=== PATIENT | female | born 1945 | race Two or more races ===

== ENCOUNTER 2019-03-26 17:09 | Emergency (ER) | payer MEDICARE, MEDICAID ==
[~2019-03-26] VITALS: Ht 167.6 cm; Wt 92.5 kg
[2019-03-26 17:33] VITALS: BP 136/60
[2019-03-26] MEDS ORDERED: CHLORASEPTIC S1 EACH MM (17:44)
[2019-03-26 17:50] VITALS: BP 136/60
--- NOTE | 2019-03-26 17:54 | Emergency Room Report ---
History of Present Illness General Chief Complaint: Pain Source: Patient Present Illness HPI 73-year-old female with hx of DM and HTN presents with sore throat for 1 week. She reports painful swallowing, rated 6/10, along with rhinorrhea and that she is getting over a cough. Denies any foreign body sensation, rash, vomiting or fever. She also reports lesions inside her bilateral cheeks which come and go. She spoke to her PCP about this and he told her it was likely due to her dentures and to stop wearing them for a while. She has not tried any medications other than NyQuil. Denies history of cancer. Allergies: Coded Allergies: No Known Allergies (Unverified , 03/26/19) Patient History Past Medical History: see triage record Past Surgical History: none Pertinent Family History: none Reviewed Nursing Documentation: PMH: Agreed; PSxH: Agreed Nursing Documentation-PMH Hx Hypertension: Yes - HIGH CHOLESTEROL Hx Diabetes: Yes Review of Systems All Other Systems: negative except mentioned in HPI Physical Exam Vital Signs Date Time Temp Pulse Resp B/P (MAP) Pulse Ox O2 Delivery O2 Flow Rate FiO2 03/26/19 17:14 98.2 76 18 136/60 (85) 98 Room Air Sp02 EP Interpretation: reviewed, normal General Appearance: no apparent distress, alert, GCS 15, non-toxic Head: normocephalic, atraumatic Eyes: bilateral eye normal inspection, bilateral eye PERRL ENT: hearing grossly normal, normal pharynx, no angioedema, normal voice, uvula midline, moist mucus membranes, other - Mild purple discoloration to bilateral inner cheeks Neck: normal inspection, full range of motion, thyroid normal, no meningismus, no bony tend, supple/symm/no masses Respiratory: chest non-tender, lungs clear, normal breath sounds, speaking full sentences Cardiovascular #1: regular rate, rhythm Neurologic: alert, oriented x3, sensory intact, responsive, speech normal Psychiatric: judgement/insight normal Lymphatic: no adenopathy Medical Decision Making PA Attestation Dr. Edmonds is my supervising physician whom patient management and care has been discussed with. Diagnostic Impression: Primary Impression: Pharyngitis Qualified Codes: J02.9 - Acute pharyngitis, unspecified ER Course Pt. presents to the ED c/o lower throat and mouth lesions. Ddx considered but are not limited to strep pharyngitis, viral syndrome, influenza, postnasal drip, cancer Vital signs: are WNL, pt. is afebrile H&PE are most consistent with viral pharyngitis ORDERS: none required at this time, the diagnosis is clinical ED INTERVENTIONS: None required at this time. DISCHARGE: At this time pt. is stable for d/c to home. Will provide printed patient care instructions, and any necessary prescriptions. Mild purple discoloration to bilateral inner cheeks likely due to denture use but cannot rule out possible malignancy. Advised patient to try Chloraseptic throat lozenges for her sore throat but if symptoms do not improve she needs to follow- up with her PCP/ENT specialist to rule out possible oral cancer. Verbalizes understanding. Care plan and follow up instructions have been discussed with the patient prior to discharge. Last Vital Signs Date Time Temp Pulse Resp B/P (MAP) Pulse Ox O2 Delivery O2 Flow Rate FiO2 03/26/19 17:33 98.2 18 136/60 98 Room Air 03/26/19 17:14 76 Disposition: HOME, SELF-CARE Condition: Stable Scripts Benzocaine/Menthol (CHLORASEPTIC SORE THROAT LOZNG) 1 Each Lozenge 1 EACH MM EVERY 2 HOURS for sore throat, #14 LOZENGE Prov: Devora Javier 03/26/19 Patient Instructions: Pharyngitis, [id number] Additional Instructions: Use CHLORASEPTIC throat lozenges or spray for sore throat. Follow up with PCP/ specialist if lesions do not improve to rule out possible cancer. Devora Javier Mar 26, 2019 17:54
== END 2019-03-26 17:50 | disposition home or self-care (01) ==
LOC: EMR 17:44
DX: J02.9 Acute pharyngitis, unspecified (principal); E11.9 Type 2 diabetes mellitus without complications; I10 Essential (primary) hypertension; E78.00 Pure hypercholesterolemia, unspecified
CPT/HCPCS: 99282